=== PATIENT | male | born 1960 | race Caucasian/White ===

== ENCOUNTER 2017-09-05 16:24 | Inpatient (IN) | payer BC ==
[2017-09-05 17:42] LABS: Troponin I Less than 0.010 ng/mL (< 0.028)
[2017-09-05] MEDS ORDERED: Acetaminophen 325 MG TAB ONE (17:56)
[2017-09-05] MEDS ORDERED: Acetaminophen 325 MG TAB PO PRN (19:46)
[2017-09-05] MEDS ORDERED: Enoxaparin Sodium 40 MG/0.4 ML SYRINGE SC SCH (21:00)
[2017-09-05 21:25] VITALS: BMI 25.9
--- NOTE | 2017-09-05 22:41 | HP ---
DATE OF ADMISSION: 09/05/2017 ADMITTING PHYSICIAN: Yaw Miller MD PRIMARY CARE PHYSICIAN: Becky Granados DO CHIEF COMPLAINT: Chest tightness, shortness of breath, and weakness. HISTORY OF PRESENT ILLNESS: The patient presented to [facility] today, complaining of chest nadia n and pressure that has been going on for approximately 2 days. The patient also reports that he has had increasing shortness of breath. He was seen by his primary care provider and noted to have sinu s bradycardia per EKG. The patient was scheduled to follow up with Cardiology for this problem withi n the next week, but his shortness of breath and weakness increased, he presented to the emergency de partment for evaluation. REVIEW OF SYSTEMS: The following complete review of systems was negative, unless otherwise mentioned in the HPI or below: Constitutional: Weight loss or gain, sense of well-being, ability to conduct usual activities, exercise tolerance. Skin/Breast: Rash, itching, changes in hair growth or loss, n ail changes, breast lumps, tenderness, swelling, nipple discharge. Eyes: Vision, double vision, tea ring, blind spots, pain. ENT/Mouth: Headaches (location, time of onset, duration, precipitating fac tors), vertigo, lightheadedness, injury. Vision, double vision, tearing, blind spots, pain, nose ble eding, colds, obstruction, discharge, dental difficulties, gingival bleeding, dentures, neck stiffnes s, pain, tenderness, masses in thyroid or other areas. Cardiovascular: Precordial pain, substernal distress, palpitations, syncope, dyspnea on exertion, orthopnea, nocturnal paroxysmal dyspnea, edema, cyanosis, hypertension, heart murmurs, varicosities, phlebitis, claudication. Respiratory: Pain, s hortness of breath, wheezing, stridor, cough, hemoptysis, fever or night sweats. Gastrointestinal: Poor appetite, dysphagia, indigestion, abdominal pain, heartburn, eructation, nausea, vomiting, hemat emesis, jaundice, constipation, or diarrhea, abnormal stools (mary-colored, tarry, bloody, greasy, fo ul smelling), flatulence, hemorrhoids, recent changes in bowel habits. Genitourinary: Urgency, freq uency, dysuria, nocturia, hematuria, polyuria, oliguria, unusual (or change in) color of urine, stone s, hesitancy, change in size of stream, dribbling, acute retention or incontinence, libido, potency. Musculoskeletal: Pain, swelling, redness or heat of muscles or joints, limitation of motion, muscul ar weakness, atrophy, cramps. Neurologic/Psychiatric: Convulsions, paralyzes, tremor, incoordinatio n, paresthesias, difficulties with memory of speech, sensory or motor disturbances, or muscular coord ination (ataxia, tremor), emotional problems, anxiety, depression, previous psychiatric care, unusual perceptions, hallucinations. Allergy/Immunologic: Skin rash, anemia, bleeding tendency, polydipsia , polyuria, intolerance to heat or cold. PAST MEDICAL HISTORY: Significant for GERD, chronic back pain, history of hypertension. PAST SURGICAL HISTORY: Positive for hiatal hernia repair. PSYCHIATRIC HISTORY: None. SOCIAL HISTORY: Denies smoking or drugs. He lives at home with his and drinks socially. FAMILY HISTORY: Reviewed and noncontributory. HOME MEDICATIONS: Gabapentin 600 mg q. day, lisinopril 20 mg q. day, amlodipine 10 mg q. day, lovast atin 40 mg q. day, fluticasone 50 mcg t.i.d., fluoxetine 10 mg q. day, hydrocodone 10 mg q. day, Flex eril 10 mg b.i.d. ALLERGIES: No known drug allergies. PHYSICAL EXAMINATION: VITAL SIGNS: Vital statistics, temperature was measured of 97.5, blood pressure of 131/68, pulse 66, satting 96% on room air. GENERAL: He is pleasant, nontoxic, in no acute distress. HEENT: Normocephalic, atraumatic. EYES: PERRL. Extraocular muscles intact. Sclerae anicteric. NECK: Supple. Full range of motion. No JVD noted. LUNGS: Clear to auscultation bilaterally. No rhonchi, no wheezing. HEART: Sinus bradycardia. ABDOMEN: Nontender, nondistended. Positive bowel sounds. EXTREMITIES: No clubbing, cyanosis, or edema. SKIN: Warm, dry, normal in color. No rashes seen. PSYCHIATRIC: Normal affect. LABORATORIES AND IMAGES: The patient had blood work performed in [place] [facility] as well which is on chart. Lab results here from [facility] show Cardiac enzymes of CK-MB 0.7, troponin I less than 0. 01. D-dimer 0.37. Please see paper chart for records from [facility]. We will report CMP and CBC in the morning and obtain a third set of cardiac enzymes. ASSESSMENT AND PLAN: 1. Unstable angina. 2. Hypertension. 3. Myalgia, chronic back pain. 4. Cardiac dysrhythmia. PLAN: The patient will be admitted inpatient to telemetry. The patient will be treated with Lovenox for DVT prophylaxis and possible acute coronary syndrome. Cardiology will be consulted to further a ssess if the patient should proceed directly to angiogram or other risk stratification measures shoul d be taken. We will continue the patient's home medication regimen. Make alterations as needed.
[2017-09-06 05:43] LABS: #Basophils 0.1 thou/uL (0.0-0.2); #Eosinphils 0.1 thou/uL (0.0-0.7); #Lymphocytes 2.5 thou/uL (1.20-3.40); #Monocytes 0.6 thou/uL (0.11-0.59); #Neutrophils 3.8 thou/uL (1.40-6.50); %Basophils 1.2 % (0.0-1.0); %Eosinophils 1.7 % (0.0-10.0); %Lymphocytes 35.6 % (21.0-51.0); %Monocytes 8.2 % (0.0-10.0); Hematocrit 41.4 % (42.0-52.0); Mean Platelet Volume 7.9 fL (7.4-10.4); Red Blood Cell (RBC) Count 4.32 mill/uL (4.70-6.10); White Blood Cell (WBC) Count 7.1 thou/uL (4.8-10.8)
[2017-09-06 05:55] LABS: Anion Gap 10 mmol/L (10-20); BUN (Urea Nitrogen) 15 mg/dL (8.4-25.7); Calc. Creatinine Clearance 86 mL/min (70-130); Calcium 9.6 mg/dL (7.8-10.44); Carbon Dioxide 29 mmol/L (22-29); Chloride 105 mmol/L (98-107); Estimated GFR-MDRD 66
[2017-09-06] MEDS ORDERED: Acetaminophen 325 MG TAB PO PRN (08:58)
[2017-09-06] MEDS ORDERED: hydrALAZINE 20 MG/ML VIAL SLOW IVP PRN (09:00)
[2017-09-06] MEDS ORDERED: FLU VACC QS2017-18 36 mo. & older 0.5 ML SYRINGE IM ONE (09:00)
[2017-09-06] MEDS ORDERED: Non-Formulary Item 1 EACH (Fluticasone Propionate [Flovent Diskus] 50 MCG) IH SCH (09:00)
[2017-09-06] MEDS ORDERED: Non-Formulary Item 1 EACH (Lovastatin [Lovastatin] 40 MG) PO SCH (09:00)
[2017-09-06] MEDS ORDERED: Atorvastatin Calcium 10 MG TAB PO SCH (09:00)
[2017-09-06] MEDS: Amlodipine 10 MG TAB PO SCH (10:08)
[2017-09-06] MEDS: Gabapentin 300 MG CAP PO SCH (10:08)
[2017-09-06] MEDS: Lisinopril 20 MG TAB PO SCH (10:09)
[2017-09-06] MEDS: HYDROcodone/Acetaminophen 5/325 mg Tablet PO PRN ×2 (10:19→19:52)
[2017-09-06] MEDS: FLUoxetine HCl 10 MG CAP PO SCH (10:22)
[2017-09-06 11:21] LABS: Magnesium 2.1 mg/dL (1.6-2.6); Phosphorus 3.8 mg/dL (2.3-4.7)
--- NOTE | 2017-09-06 14:45 | PDOC.PN ---
- Subjective Encounter Start Date: 09/06/17 Encounter Start Time: 10:15 Patient seen and examined. Intermittent chest pressure with SOB. No overnight events - Objective MAR Reviewed: Yes Vital Signs & Weight: Vital Signs (12 hours) Temp Pulse Resp BP BP Pulse Ox 09/06/17 12:00 97.8 F 53 L 16 112/56 L 97 09/06/17 10:09 130/73 09/06/17 10:08 55 L 09/06/17 08:02 97.8 F 53 L 16 97 09/06/17 07:49 98.6 F 55 L 16 109/59 L 98 09/06/17 04:15 98 F 57 L 18 127/79 97 Weight Weight 186 lb 6.4 oz I&O: 09/05/17 09/06/17 09/07/17 06:59 06:59 06:59 Intake Total 640 Balance 640 Result Diagrams: 09/06/17 05:13 09/06/17 05:13 EKG Reviewed by me: Yes (Tele SR/PVCs) Dx/Plan - Plan DVT proph w/SCDs IMPRESSION: 1. CP/Unstable angina 2. HTN 3. Chronic back pain 4. GERD 5. CKD 2 PLAN: * Await Cardiology input/Echo * Home meds restarted * Add Pepcid * Cont other meds as below Laboratory Tests 09/05/17 09/06/17 17:00 05:13 D-Dimer 0.37 Triglycerides 361 H Cholesterol 254 H LDL Cholesterol, Calc 150 HDL Cholesterol 32 Review of Systems - Review of Systems Respiratory: SOB with Excertion. negative: Cough, Dry, Shortness of Breath, Hemoptysis, Pleuritic Pain, Sputum, Wheezing Cardiovascular: negative: Chest Pain, Palpitations, Orthopnea, Paroxysmal Noc. Dyspnea, Edema, Light Headedness Gastrointestinal: negative: Nausea, Vomiting, Abdominal Pain, Diarrhea, Constipation, Melena, Hematochezia - Medications/Allergies Allergies/Adverse Reactions: Allergies Allergy/AdvReac Type Severity Reaction Status Date / Time No Known Allergies Allergy Verified 09/05/17 19:55 Medications: Current Medications Acetaminophen (Tylenol) 650 mg PO Q4H PRN PRN Reason: Headache/Fever or Pain Last Admin: 09/06/17 03:06 Dose: 650 mg Hydrocodone Bitart/Acetaminophen ([place] 5/325) 1 tab PO Q6H PRN PRN Reason: Moderate Pain (4-6) Last Admin: 09/06/17 10:19 Dose: 1 tab Amlodipine Besylate (Norvasc) 10 mg PO DAILY [facility] Last Admin: 09/06/17 10:08 Dose: 10 mg Aspirin (Ecotrin) 325 mg PO DAILY [facility] Atorvastatin Calcium (Lipitor) 10 mg PO DAILY [facility] Last Admin: 09/06/17 10:09 Dose: 10 mg Cyclobenzaprine HCl (Flexeril) 10 mg PO BID PRN PRN Reason: Muscle Spasm Famotidine (Pepcid) 20 mg PO BID [facility] Fluoxetine HCl (Prozac) 10 mg PO DAILY [facility] Last Admin: 09/06/17 10:22 Dose: 10 mg Gabapentin (Neurontin) 600 mg PO DAILY [facility] Last Admin: 09/06/17 10:08 Dose: 600 mg Hydralazine HCl (Apresoline) 10 mg SLOW IVP Q4H PRN PRN Reason: SBP Greater Than 180 Lisinopril (Zestril) 20 mg PO DAILY [facility] Last Admin: 09/06/17 10:09 Dose: 20 mg Mometasone Furoate (Asmanex Twisthaler) 2 puff INH 1800 [facility] Sodium Chloride (Flush - Normal Saline) 10 ml IVF Q12HR [facility] Last Admin: 09/06/17 10:18 Dose: 10 ml Sodium Chloride (Flush - Normal Saline) 10 ml IVF PRN PRN PRN Reason: Saline Flush
[2017-09-06] MEDS: Mometasone Furoate 120 PUFF 220 MCG INH SCH (19:00)
[2017-09-06] MEDS: Cyclobenzaprine 10 MG TAB PO PRN (19:52)
[2017-09-06] MEDS: Famotidine 20 MG TAB PO SCH (19:52)
--- NOTE | 2017-09-07 05:05 | CON ---
DATE OF CONSULTATION: 09/06/2017 HISTORY OF PRESENT ILLNESS: Mr. Pak is a 57-year-old white male, who over the last 3 weeks has had chest discomfort. This was a substernal chest pressure that would last 5-10 minutes and not necessa rily be associated with exertion. Then, over the last 48 hours, the pain has been constant and nia nuous to this point. He also has had some shortness of breath associated with this and feeling palpi tations. He denies any pleuritic component to the pain. He ultimately went to the hospital in [facility] and was transferred here for further evaluation. PAST MEDICAL HISTORY: Hypertension, hypercholesterolemia, GERD, chronic back pain. OPERATIONS: Hiatal hernia repair. CURRENT MEDICATIONS: Norvasc 10 mg daily, Flexeril 10 mg b.i.d., fluoxetine 10 daily, Flovent inhala tions t.i.d., gabapentin 600 daily, lisinopril 20 daily, lovastatin 40 daily. ALLERGIES: None. SOCIAL HISTORY: He smoked 1 pack per day, but stopped 5 years ago. He does not drink. FAMILY HISTORY: Negative for coronary artery disease, although his mother and father had strokes. REVIEW OF SYSTEMS: Ten-point review of systems is otherwise unremarkable. PHYSICAL EXAMINATION: VITAL SIGNS: Blood pressure 105/73, pulse of 52 with premature beats. HEENT: PERRL. NECK: Supple. CHEST: Clear. CARDIAC: S1 and S2 are normal without any S3, S4, or murmurs. ABDOMEN: Normal bowel sounds without tenderness, organomegaly, or masses. EXTREMITIES: Revealed no clubbing, cyanosis, or edema. NEUROLOGIC: Grossly intact. SKIN: Warm and dry. MUSCULOSKELETAL: Reveals palpable chest wall tenderness in the area of his pain and reproduces his p ain. IMAGING AND LABORATORY DATA: EKG revealed normal sinus rhythm with atrial bigeminy and possible sept al infarction. Cardiac enzymes despite 48 hours of continual chest pain are normal. TSH is normal. Sodium 140, potassium 4.0, chloride 105, carbon dioxide 29, BUN 15, creatinine 1.15, cholesterol 254 , triglycerides 361, HDL 32, LDL 150. Hemoglobin 14.0, hematocrit 41.4, white count 7100, platelets 160,000. IMPRESSION: 1. Atypical chest discomfort with continual discomfort for 48 hours with negative cardiac enzymes an d palpable tenderness in the area, most consistent with chest wall pain. 2. Mild left ventricular dysfunction on echocardiogram with ejection fraction of 40% to 45%. 3. Hypertension. 4. Hypercholesterolemia, poorly controlled. 5. Former smoker. PLAN: With his atypical chest discomfort clinically appears to be chest wall pain, he will undergo L exiscan Cardiolite testing for further risk stratification. We have discussed low-cholesterol diet a nd that probably he will need to consider changing to more potent statin.
[2017-09-07] MEDS ORDERED: Aspirin 325 mg Enteric Coated Tablet PO SCH (09:00)
[2017-09-07] MEDS: HYDROcodone/Acetaminophen 5/325 mg Tablet PO PRN ×2 (09:43→15:42)
[2017-09-07] MEDS: Gabapentin 300 MG CAP PO SCH (12:24)
[2017-09-07] MEDS: Famotidine 20 MG TAB PO SCH (12:25)
[2017-09-07] MEDS: Lisinopril 20 MG TAB PO SCH (12:26)
[2017-09-07] MEDS: FLUoxetine HCl 10 MG CAP PO SCH (12:34)
[2017-09-07] MEDS: Amlodipine 10 MG TAB PO SCH (12:34)
[2017-09-07] MEDS: Cyclobenzaprine 10 MG TAB PO PRN (15:42)
--- NOTE | 2017-09-07 15:45 | NM ---
RADIONUCLIDE STRESS REST MYOCARDIAL PERFUSION SCAN WITH CT ATTENUATION CORRECTION AND SPECT IMAGING LEFT VENTRICULAR WALL MOTION EVALUATION AND EJECTION FRACTION: History: Chest pain. FINDINGS: There is homogeneous uptake of the radiotracer throughout the left ventricular myocardium without foc al perfusion defect or reversibility evident. QGS analysis with gated SPECT images shows no focal wall motion abnormalities. Lexiscan protocol was used. Left ventricular ejection fraction is calculated at 57%. IMPRESSION: 1. Normal myocardial perfusion scan showing no evidence of ischemia. 2. Normal LVEF. POS: [facility]
[2017-09-07 15:55] VITALS: BP 111/64; TEMP 97.4
[2017-09-07] MEDS ORDERED: Regadenoson 0.4 MG/5 ML SYRINGE ONE (17:04)
[2017-09-07] MEDS: Mometasone Furoate 120 PUFF 220 MCG INH SCH (18:04)
--- NOTE | 2017-09-07 18:31 | DIS ---
DATE OF DISCHARGE: 09/07/2017 DISCHARGE DISPOSITION: Home. FOLLOWUP: 1. Follow up with primary care physician, Becky Granados DO in 1 week. 2. Follow up with Dagoberto Blum M.D., cardiology as outpatient. 3. Repeat echo in 3-4 months. The patient was seen and examined on the day of discharge. Denies any new complaints. DISCHARGE MEDICATIONS: Lipitor 40 mg q.h.s. (new medicine), lovastatin discontinued. Other home med ications were continued including Tylenol as needed, amlodipine 10 mg daily, Flexeril 10 mg b.i.d., f luoxetine 10 mg daily, Flovent 50 mcg 3 times daily, gabapentin 600 mg daily, [place] 10/325 daily, lis inopril 20 mg daily. INPATIENT CONSULTANTS: Cardiology, Dr. Blum. BRIEF HOSPITAL COURSE: The patient is a 57-year-old male with hypertension, chronic back pain and GE RD, presented to the emergency room with chest discomfort along with shortness of breath. Please ref er to the history and physical dated 09/05/2017 for further details. The patient was admitted to the hospital with a diagnosis of unstable angina due to ongoing chest nadia n. His serial cardiac enzymes were normal. He was seen by Cardiology, Dr. Blum. Echocardiogram was done that showed ejection fraction of 40-45% with mild mitral regurg, mild tricuspid regurgitati on. He underwent a stress test today and that was negative for reversible ischemia. Ejection fracti on on stress test was 57%. He has been cleared by Cardiology for discharge. SIGNIFICANT TEST: 1. D-dimer was negative. 2. Fasting lipid profile showed triglyceride 361, cholesterol 254, LDL 150, HDL 32. TSH was 0.66. FINAL DIAGNOSES: 1. Chest discomfort, acute coronary syndrome ruled out. 2. Unstable angina on admission ruled out. 3. Negative Cardiolite stress test. 4. Ejection fraction 40-45% on echocardiogram. Repeat echocardiogram in 3-4 months. 5. Hypertension. 6. Chronic low back pain. 7. Dyslipidemia. 8. Gastroesophageal reflux disease. 9. Chronic kidney disease stage II. Plan of care was discussed with the patient and he stated understanding.
[2017-09-07] MEDS ORDERED: Atorvastatin Calcium 40 MG TAB PO SCH (21:00)
== END 2017-09-07 18:45 | disposition home or self-care (01) | DRG 313 ==
LOC: ERS 16:24 → 2SE 19:15
PROVIDERS: ADMIT Internal Medicine Addiction Medicine; ATTEND Internal Medicine Addiction Medicine
PROC: 4A02XM4 Measurement of Cardiac Total Activity, External Approach (ICD-10-PCS; principal; 2017-09-07)
DX: R07.89 Other chest pain (principal); I08.1 Rheumatic disorders of both mitral and tricuspid valves; I12.9 Hypertensive chronic kidney disease with stage 1 through stage 4 chronic kidney disease, or unspecified chronic kidney disease; G89.29 Other chronic pain; K21.9 Gastro-esophageal reflux disease without esophagitis; M79.1 Myalgia; E78.00 Pure hypercholesterolemia, unspecified; M54.5 Low back pain; N18.2 Chronic kidney disease, stage 2 (mild); Z87.891 Personal history of nicotine dependence
CPT/HCPCS: 36415; 78452; 80048; 80061; 83735; 84100; 84443; 85025; 85379; 90471; 90682; 90732; 93017; 93306; 99285; A4216; A9500; G0008; G0009; J1650; J2785; Q2036

== ENCOUNTER 2019-05-12 06:40 | Day surgery (SDC) | payer MEDICARE ==
[2019-05-11 11:07] VITALS: BMI 25.7
[2019-05-12 07:32] VITALS: BP 106/72; TEMP 97
--- NOTE | 2019-05-12 09:14 | RAD ---
Exam: LUMBAR MYELOGRAM WITH FLUOROSCOPIC GUIDANCE: HISTORY: Low back pain. Lumbar radiculopathy. FINDINGS: Two-view insurance account assistant lumbar spine radiograph demonstrates 5 lumbar type vertebra. There appears to be parti al lumbarization of S1. Bilateral transpedicular screw at L4, L5 and S1. Disc prosthesis at L4-L5 and L5-S1. Successful lumbar puncture for intrathecal contrast administration. A total of 9 mL of Isovue-M 200 contrast was administered intrathecally. No postprocedural complications. TECHNIQUE: Consent obtained performing lumbar puncture with fluoroscopic guidance. The L2-L3 level was deemed ap propriate. Skin was prepped and draped in sterile fashion. 1% lidocaine, buffered with sodium bicarbonate was used for local anesthesia. Under fluoroscopic guidance, a 22-gauge spinal needle was advanced into the CSF space. There is prompt flow of clear CSF into the hub of the needle. Via a short tubing catheter, total of 9 mL of Isovue-M 200 contrast was administered intrathecally. The pat ient tolerated the procedure well. No immediate or postprocedural complications. Exposure: 0.5 minutes. 221.2 microgray/M2. IMPRESSION: Successful lumbar puncture for intrathecal contrast administration. Transcribed Date/Time: 05/12/2019 10:16 AM
--- NOTE | 2019-05-12 10:34 | RAD ---
TWO VIEWS LUMBAR SPINE: COMPARISON: 04/25/2013. FINDINGS: Upright flexion and extension views demonstrate bilateral transpedicular screws at L4, L5 and S1. In the upright flexion and extension position, there is no significant spondylolisthesis. No significa nt motion. IMPRESSION: Fusion from L4 through S1. No significant spondylolisthesis. No significant change upon extension o r flexion. POS: [facility]
--- NOTE | 2019-05-12 11:44 | CT ---
LUMBAR SPINE CT WITHOUT CONTRAST: Date: 05/12/19 HISTORY: Lumbar radiculopathy. Low back pain. COMPARISON: None. FINDINGS: Lumbar spine vertebral body height is maintained. There is no fracture. There is partial lumbarizatio n of S1. There are bilateral transpedicular screws at L4, L5, and S1. Disc prosthesis at L4-L5 and L5 -S1. There is no perihardware lucency. No spondylolisthesis or spondylolysis. Visualized alimentary canal and solid organs have appropriate attenuation. Symmetric attenuation of the paraspinal muscles. Conus medullaris terminates at the inferior aspect of L1. T11-T12 and T12-L1: No significant central canal stenosis or significant neural foraminal narrowing. L1-L2: No significant central canal stenosis or neural foraminal narrowing. L2-L3: No significant central canal stenosis or significant neural foraminal narrowing. L3-L4: Broad based disc bulge, ligamentum flavum thickening, and facet hypertrophy result in mild ce ntral canal stenosis. Mild to moderate right and moderate left neural foraminal narrowing. There is a left extraforaminal disc bulge that abuts but does not obscure the extraforaminal left L3 nerve root . L4-L5: Bilateral decompressive laminectomy defect. Disc prosthesis. No evidence of significant centr al canal stenosis. Mild right neural foraminal narrowing. Left neural foramen is mildly narrowed. L5-S1: Posterior laminectomy defect. There is a disc prosthesis. There appears to be an osteophyte i mpinging upon the left subarticular zone. Osteophyte abuts but does not obscure the traversing left S 1 nerve root. Right subarticular zone is unremarkable. No significant central canal stenosis. Mild bi lateral foraminal narrowing. S1-S2: No significant central canal stenosis. Neural foramina are patent. IMPRESSION: 1. Lumbar fusion from L4 through S1. There is partial lumbarization of S1. 2. No evidence of a complicating process or loosening. No evidence of fracture. 3. No evidence of significant central canal stenosis. Varying degrees of neural foraminal narrowing as above. 4. There is an osteophyte encroaching upon the left subarticular zone at L5-S1. There is mass effect without obscuration of the traversing left S1 nerve root. POS: [facility]
== END 2019-05-12 09:30 | disposition home or self-care (01) ==
LOC: RAD 06:40
PROVIDERS: ATTEND Neurological Surgery
PROC: B01B1ZZ Fluoroscopy of Spinal Cord using Low Osmolar Contrast (ICD-10-PCS; principal; 2019-05-12)
DX: M51.16 Intervertebral disc disorders with radiculopathy, lumbar region (principal); M48.061 Spinal stenosis, lumbar region without neurogenic claudication; I10 Essential (primary) hypertension; E78.5 Hyperlipidemia, unspecified; F17.200 Nicotine dependence, unspecified, uncomplicated; Z79.899 Other long term (current) drug therapy; Z98.1 Arthrodesis status
CPT/HCPCS: 62304; 72100; 72132

== ENCOUNTER 2019-07-26 11:16 | Emergency (ER) | payer MEDICARE ==
[2019-07-26] MEDS ORDERED: HYDROcodone/Acetaminophen 10/325 mg Tablet ONE (11:35)
--- NOTE | 2019-07-26 12:11 | RAD ---
Exam: Left foot 3 views: HISTORY: Fifth metatarsal pain following injury COMPARISON: None FINDINGS: Small calcaneal Achilles enthesophyte. No evidence for fracture, dislocation, or other significant acute osseous abnormality. IMPRESSION: No significant acute process.
--- NOTE | 2019-07-26 12:14 | RAD ---
EXAM: Left hand 3 views: HISTORY: Pain following injury, snuffbox tenderness COMPARISON: None FINDINGS: Focal arthrosis changes in the triscaphe region as well as the trapezium first metacarpal joint. No acute fracture or dislocation or other significant acute osseous abnormality. IMPRESSION: No significant acute process. If the patient has persistent or worsening unexplained pain, follow-up examination in 5-7 days versus follow-up additional imaging with MR should be considered, particularly if there remains concern for scaphoid bone injury.
== END 2019-07-26 12:29 | disposition home or self-care (01) ==
LOC: SCSER 11:16
DX: M79.672 Pain in left foot (principal); M79.645 Pain in left finger(s); I49.9 Cardiac arrhythmia, unspecified; I48.91 Unspecified atrial fibrillation; E78.5 Hyperlipidemia, unspecified; I10 Essential (primary) hypertension; K21.9 Gastro-esophageal reflux disease without esophagitis; F32.9 Major depressive disorder, single episode, unspecified; Z79.899 Other long term (current) drug therapy; W06.XXXA Fall from bed, initial encounter
CPT/HCPCS: 29125

== ENCOUNTER 2020-12-31 07:40 | Outpatient (CLI) | payer MEDICARE | END 2020-12-31 07:41 | disposition home or self-care (01) | LOC: BICULT 07:40 | PROVIDERS: ATTEND Family Medicine | DX: Z13.6 Encounter for screening for cardiovascular disorders (principal); Z12.2 Encounter for screening for malignant neoplasm of respiratory organs; Z87.891 Personal history of nicotine dependence | CPT/HCPCS: 71271; 76775 ==

== ENCOUNTER 2023-01-19 13:42 | Outpatient (CLI) | payer MEDICARE | END 2023-01-19 13:43 | disposition home or self-care (01) | LOC: SCSMRI 13:42 | PROVIDERS: ATTEND Family Medicine | DX: M47.26 Other spondylosis with radiculopathy, lumbar region (principal); M47.815 Spondylosis without myelopathy or radiculopathy, thoracolumbar region; M47.817 Spondylosis without myelopathy or radiculopathy, lumbosacral region; Z98.1 Arthrodesis status | CPT/HCPCS: 70210; 72148 ==

== ENCOUNTER 2024-03-09 15:44 | Outpatient (CLI) | payer MEDICARE | END 2024-03-09 15:45 | disposition home or self-care (01) | LOC: BICRAD 15:44 | PROVIDERS: ATTEND Nurse Practitioner Family | DX: R05.8 Other specified cough (principal); R09.89 Other specified symptoms and signs involving the circulatory and respiratory systems; R52 Pain, unspecified | CPT/HCPCS: 71046; 87635 ==